=== PATIENT | female | born 1980 | race Caucasian/White ===

== ENCOUNTER 2023-11-24 13:32 | Emergency (ER) | payer OTHER, SELFPAY ==
[2023-11-24] VITALS (13 sets, daily range): BP systolic 151–212; BP diastolic 79–116
[2023-11-24 14:01] LABS: % Eosinophils 1.2 % (0-6); % Immature Granulocytes 0.4 % (0-0.5); % Lymphocytes 30.2 % (20.5-51.1); % Monocytes 6.5 % (1.7-9.3); % Neutrophils 60.7 % (42.2-75.2); Absolute Basophils 0.1 10^3/uL (0-0.2); Absolute Eosinophils 0.1 10^3/uL (0-0.7); Absolute Lymphocytes 2.2 10^3/uL (1.2-3.4); Absolute Monocytes 0.5 10^3/uL (0.1-0.6); Absolute Neutrophils 4.5 10^3/uL (1.4-6.5); Hematocrit 39.9 % (37.0-47.0); Hemoglobin 13.3 g/dL (12.0-16.0); Mean Corp Hgb Conc. 33.3 g/dL (33.0-37.0); Mean Corpuscular Hgb 28.9 pg (27.0-31.0); Mean Corpuscular Volume 86.7 fL (81.0-99.0); Mean Platelet Volume 9.6 fL (7.4-10.4); Nucleated Red Blood Cells % 0 %; Platelet Count 295 10^3/uL (130-400); Red Cell Dist. Width 12.7 % (11.5-14.5); White Blood Cell Count 7.3 10^3/uL (4.8-10.8)
[2023-11-24 14:13] LABS: HCG, Serum Qualitative Screen Negative
[2023-11-24 14:16] LABS: ALT (SGPT) 16 U/L (0-35); AST (SGOT) 19 U/L (14-36); Albumin 4.4 g/dl (3.5-5.0); Alkaline Phosphatase 54 U/L (38-126); Blood Urea Nitrogen 15 mg/dl (7-17); Calcium 9.2 mg/dl (8.4-10.2); Carbon Dioxide 29 mmol/L (22-30); Chloride 103 mmol/L (98-107); Glucose 100 mg/dl (70-99); Potassium 4.4 mmol/L (3.5-5.1); Sodium 139 mmol/L (135-145); Total Bilirubin 0.7 mg/dl (0.2-1.3); Total Protein 7.3 g/dl (6.3-8.2); eGFR > 60.00
--- NOTE | 2023-11-24 15:01 | ED.GENMED ---
History of Present Illness
General
Chief Complaint: Blood Pressure Problem
Source: patient
Time Seen by Provider: 11/24/23 14:30
Travel History
Have you had any contact with someone who has COVID-19?: No
Do you have any symptoms of coronavirus? Fever > 100 degrees, chills, cough, shortness of breath, sore throat, loss of taste or smell, muscle aches, or headache?: No
History of Present Illness
History of Present Illness:
43-year-old female presents to the emergency room for evaluation of headache, elevated blood pressure which has been present for the past several days. Patient started Strattera 2 weeks ago. She started at 25 mg and after a week or so increased
the dose. She felt poorly with the increased dose and went back to 25 mg. This did not improve her symptoms so she has stopped the medication. Her last dose was 4 days ago. Patient continues to have headache, currently she rates it a 5-6 out of
10. She denies focal weakness numbness or tingling. She denies any nausea or vomiting. Denies chest pain or back pain. She denies abdominal pain. Patient states her blood pressure was normal prior to the initiation of the medication. 1 time
her blood pressure has ever been high as when she had preeclampsia and required a emergent .
Past History
Past History
ED Past Medical History: Other (Vasovagal syncope)
ED Past Surgical History: Other (Hiatal hernia repair)
Social History
Tobacco: Non-smoker
Phy Exam
Physical Exam
Physical Exam:
General: Awake, Alert, Oriented X3. No acute distress.
Vitals: unremarkable
Head: Atraumatic
Eyes: Pupils equal, EOMI
Throat: Airway intact, no exudates
Neck: Trachea midline
Lungs: Clear and equal b/l
Heart: Regular rate, no murmurs
Abd: Soft, Nontender, No pulsatile mass
Neuro: Cranial nerves intact, muscle strength equal bilaterally, cerebellar exam normal
Skin: Warm, dry, no rash
Extremities: pulses equal b/l, no edema
Course
Orders/Labs/Results
Orders:
Orders
11/24/23 13:38
Electrocardiogram (*1) Urgent
Reason for Study: Hypertension, Benign
EKG- Treatment ONCE
Test Result ONCE
11/24/23 13:45
Complete Blood Count/With Diff Urgent
Comprehensive Metabolic Panel Urgent
HCG, Serum Qualitative Screen Urgent
TSH Reflex To Free T4 Urgent
Comment: TSH REFLEX ADDED ON BY FLOOR 3PM 11-24-23
11/24/23 14:54
Add On- LAB Urgent
Tests Added?: tsh w reflex t4
Labetalol HCl [Trandate] 10 mg IV NOW STA
11/24/23 15:02
CT Head W/o Iv Contrast Urgent
Comment:
Reason For Exam: headache, marked, suddenly elevated bp
11/24/23 17:01
Urinalysis Reflex To Culture Urgent
Date Specimen was Collected: 11/24/23
Time Specimen was Collected: 17:00
11/24/23 18:48
Amlodipine [Norvasc] 10 mg PO NOW STA
11/24/23 19:00
Labetalol [Trandate] 200 mg PO NOW STA
11/24/23 20:16
Acetaminophen [Tylenol] 1,000 mg PO NOW STA
Abnormal Lab Results
11/24/23
13:45
Glucose 100 H mg/dl
(70-99)
11/24/23 13:45
11/24/23 13:45
Vital Signs
Initial and Last Documented VS:
Initial Vital Signs
Temp Pulse Resp BP Pulse Ox
98.1 F 85 18 212/116 98
11/24/23 13:33 11/24/23 13:33 11/24/23 13:33 11/24/23 13:33 11/24/23 13:33
Last Documented Vital Signs
Temp Pulse Resp BP Pulse Ox
98.1 F 77 20 178/94 98
11/24/23 13:33 11/24/23 20:00 11/24/23 20:00 11/24/23 20:00 11/24/23 20:00
MDM/Problems Addressed
Differential Diagnosis Includes:
uncontrolled htn, htn emergency, intracranial lesion
MDM/Problems Addressed:
Patient presents with significant hypertension. She does not have any evidence of endorgan dysfunction. Labs are unremarkable. CT head is unremarkable. Antihypertensives initiated here in the emergency room with improvement. Do not expect
normalization immediately. Patient will be initiated on oral antihypertensives and have her follow-up with both her primary care doctor and nephrology as outpatient.
Chronic conditions affecting care: HTN
*Radiology
Radiology exam reviewed: radiology read reviewed
*Pulse Oximetry
Patient hypoxic: no
*EKG
Interpretation: normal
Heart Rate: 73
Rate: normal
Rhythm: sinus
[place]: normal axis
Interval: normal interval
QRS Pattern: normal QRS
Ischemia: no ischemia
*Press Brake Operator Interpretation
Rate: normal
Interpretation: normal
Rhythm: sinus
*Critical Care Note
Total Time (30-74mins, 75-104mins- exclusive of procedures): Not Applicable
Patient Management
Social determinants of health affecting care: Strong social support
Escalation/DeEscalation of care consider admission/obs:
Considered hospitalization but the patient's blood pressure is improving. Her headache improves with improved blood pressure. Labs, EKG, head CT are unremarkable. Patient seems quite reliable. Will start oral antihypertensives and have her
follow-up closely as an outpatient.
ED Attending Note
-
Portions of this chart may have been created with voice recognition software.� Occasional wrong word or��sound alike� substitutions may have occurred due to the inherent limitations of voice recognition software.
Discharge Plan
Departure
Patient Disposition: Home (Routine Discharge)
Date of Disposition: 11/24/23
Time of Disposition: 20:13
Patient with high blood pressure during this ER visit?: Yes
Condition: Good
Discharge Problem:
Hypertension
Instructions: High Blood Pressure (DC)
Prescriptions:
New
labetalol 200 mg tablet
200 mg PO BID Qty: 60 0RF
amlodipine 10 mg tablet
10 mg PO DAILY Qty: 30 0RF
No Action
vit no.[id number] [ Vitamin] 1 EACH tablet
1 mg PO DAILY
labetalol 200 MG tablet
200 mg PO BID Qty: 60 0RF
nifedipine 30 MG tablet extended release
30 mg PO DAILY Qty: 30 0RF
oxycodone-acetaminophen 5 MG/325 MG tablet
1 tab PO Q4HPRN PRN (Reason: moderate pain) Qty: 30 0RF
ibuprofen 600 MG tablet
600 mg PO Q6HPRN PRN (Reason: moderate pain/cramps) Qty: 0 0RF
Referrals:
Rosy Young PA-C [Family Provider] -
Interventions
Interventions:
*Risk Screen - Suicide Last Done: 11/24/23 15:40
*General Assessment Last Done: 11/24/23 13:33
*Neglect/Abuse Screening Last Done: 11/24/23 15:40
ED- Fall Risk Assessment Last Done: 11/24/23 15:39
*ED COVID-19 Vaccine History Last Done: 11/24/23 13:33
*Nursing Disposition Last Done: 11/24/23 20:28
ED- Cardiac Assessment Last Done: 11/24/23 15:39
ED- Neurological Assessment Last Done: 11/24/23 15:39
ED- Pulmonary Assessment Last Done: 11/24/23 15:39
Discharge Date and Time
Discharge Date/Time: 11/24/23 20:29
Print Language: [place]QI
[2023-11-24] MEDS: TRANDATE 10 MG IV (15:08)
[2023-11-24 16:52] LABS: TSH Reflex To Free T4 1.69 uIU/ml (0.47-4.68)
[2023-11-24 17:24] LABS: Urine Albumin Negative (Neg - Trace); Urine Bilirubin Negative (Negative); Urine Character Clear (Clear); Urine Color Straw; Urine Glucose Negative (Negative); Urine Ketone Negative (Negative); Urine Leukocyte Negative (Negative); Urine Nitrite Negative (Negative); Urine Occult Blood Negative (Negative); Urine Urobilinogen Negative (Neg - 1+)
[2023-11-24] MEDS: NORVASC 10 MG PO (19:02)
[2023-11-24] MEDS: TRANDATE 200 MG PO (19:31)
[2023-11-24] MEDS: TYLENOL 1000 MG PO (20:20)
== END 2023-11-24 20:29 | disposition home or self-care (01) ==
LOC: EMR 13:32
PROVIDERS: Emergency Medicine; EMERGENCY PHYSICIAN Emergency Medicine; FAMILY PHYSICIAN Physician Assistant
DX: I10 Essential (primary) hypertension (principal)
CPT/HCPCS: 99285; 96374; 70450; 80053; 81003; 84443; 84703; 85025; 93005

== ENCOUNTER → 2024-05-31 10:02 | Outpatient (REF) | payer OTHER, SELFPAY | LOC: RAD 10:02 | PROVIDERS: ATTENDING PHYSICIAN Physician Assistant | DX: M25.551 Pain in right hip (principal); M25.552 Pain in left hip | CPT/HCPCS: 73523 ==

== ENCOUNTER → 2024-07-16 16:07 | Outpatient (REF) | payer OTHER, SELFPAY | LOC: WDC 16:07 | PROVIDERS: ATTENDING PHYSICIAN Physician Assistant | DX: Z12.31 Encounter for screening mammogram for malignant neoplasm of breast (principal) | CPT/HCPCS: 77063; 77067 ==

== ENCOUNTER → 2025-01-20 06:30 | Outpatient (REF) | payer OTHER, SELFPAY | LOC: MRI 3T 06:30 | PROVIDERS: ATTENDING PHYSICIAN Orthopaedic Surgery; FAMILY PHYSICIAN Physician Assistant | DX: Q65.89 Other specified congenital deformities of hip (principal) | CPT/HCPCS: 73721 ==

== ENCOUNTER 2025-01-22 06:14 | Day surgery (SDC) | payer OTHER, SELFPAY ==
[2025-01-22] VITALS (9 sets, daily range): BP systolic 118–137; BP diastolic 65–82; BMI 31.5
[2025-01-22] MEDS: TYLENOL 1000 MG PO (07:10)
[2025-01-22] MEDS: NORMOSOL-R/PLASMALYTE-A 1000 IV (07:10)
[2025-01-22] MEDS: SUBLIMAZE 25 MCG IV (09:31)
== END 2025-01-22 10:54 | disposition home or self-care (01) ==
LOC: SDS 06:14
PROVIDERS: ATTENDING PHYSICIAN Otolaryngology
DX: J35.1 Hypertrophy of tonsils (principal); R06.83 Snoring
CPT/HCPCS: 42826; 88304